=== PATIENT | male | born 1965 ===

== ENCOUNTER → 2017-04-07 | Outpatient (CLI) | payer OTHER ==
--- NOTE | 2017-04-07 09:55 | CPEKG ---
Heart Rate: 90 RR Interval: 667 P-R Interval: 188 QRSD Interval: 88 QT Interval: 360 QTC Interval: 441 P [place]: 75 QRS [place]: 50 T Wave [place]: 48 EKG Severity - NORMAL ECG - EKG Impression: SINUS RHYTHM Electronically Signed By: Wero Fontanez 07-Apr-2017 14:33:09
== END ==
LOC: FCP 09:43
PROVIDERS: ATTEND Internal Medicine
DX: I10 Essential (primary) hypertension (principal); Z21 Asymptomatic human immunodeficiency virus [HIV] infection status; Z79.899 Other long term (current) drug therapy; M25.511 Pain in right shoulder

== ENCOUNTER → 2018-02-12 | Outpatient (CLI) | payer OTHER | LOC: BMCIMAGING 10:47 | PROVIDERS: ATTEND Internal Medicine | DX: Z13.820 Encounter for screening for osteoporosis (principal); M85.89 Other specified disorders of bone density and structure, multiple sites; B20 Human immunodeficiency virus [HIV] disease; B45.1 Cerebral cryptococcosis; I10 Essential (primary) hypertension ==